=== PATIENT | female | born 1990 | race Two or more races ===

== ENCOUNTER 2016-03-24 18:17 | Emergency (ER) | payer MEDICAID ==
[2016-03-24] MEDS ORDERED: traMADol 50 MG TABLET PO STA (19:11)
[2016-03-24] MEDS ORDERED: MAG HYDROX/AL HYDROX/SIMETH 30 ML UDC PO STA (19:11)
[2016-03-24] MEDS ORDERED: ACETAMINOPHEN 500 MG TABLET PO STA (19:11)
[2016-03-24] MEDS ORDERED: ACETAMINOPHEN 500 MG TABLET PO ONE (19:20)
[2016-03-24] MEDS ORDERED: MAG HYDROX/AL HYDROX/SIMETH 30 ML UDC ONE (19:20)
[2016-03-24] MEDS ORDERED: traMADol 50 MG TABLET PO ONE (19:20)
== END 2016-03-24 21:18 | disposition home or self-care (01) ==
DX: O99.89 Other specified diseases and conditions complicating pregnancy, childbirth and the puerperium (principal); M54.5 Low back pain; Z3A.00 Weeks of gestation of pregnancy not specified
CPT/HCPCS: 36415; 76801; 76817; 81003; 81025; 84702; 99283; 99284; A9270

== ENCOUNTER 2016-04-05 22:17 | Emergency (ER) | payer MEDICAID ==
[2016-04-06] MEDS ORDERED: ACETAMINOPHEN 500 MG TABLET PO STA (00:59)
== END 2016-04-06 02:02 | disposition home or self-care (01) ==
DX: O99.89 Other specified diseases and conditions complicating pregnancy, childbirth and the puerperium (principal); M62.830 Muscle spasm of back; Z3A.01 Less than 8 weeks gestation of pregnancy

== ENCOUNTER 2016-06-15 15:49 | Emergency (ER) | payer MEDICAID ==
[2016-06-15] MEDS ORDERED: ACETAMINOPHEN 325 MG TABLET PO STA (16:58)
[2016-06-15] MEDS ORDERED: IBUPROFEN 600 MG TABLET PO STA (16:58)
[2016-06-15] MEDS ORDERED: IBUPROFEN 600 MG TABLET PO ONE (17:03)
[2016-06-15] MEDS ORDERED: ACETAMINOPHEN 325 MG TABLET PO ONE (17:03)
== END 2016-06-15 17:07 | disposition home or self-care (01) ==
DX: R10.32 Left lower quadrant pain (principal); O26.892 Other specified pregnancy related conditions, second trimester; Z3A.17 17 weeks gestation of pregnancy
CPT/HCPCS: 81003; 99283; A9270

== ENCOUNTER 2016-08-10 17:44 | Outpatient (CLI) | payer MEDICAID ==
[2016-08-10 18:53] LABS: BILIRUBIN,URINE NEGATIVE (NEGATIVE); UA CHARGE (STRIP ONLY) YES; UR CULTURE IF IND NOT INDICATED
--- NOTE | 2016-08-10 21:10 | Ultrasound Preliminary Report ---
Exam: US OB Limited IMPRESSION: 1. Single live intrauterine gestation with normal interval growth concordant with the established EDC of 11/25/2016 2. Normal RAJ and placenta. [facility] SITE ID: [id number]
[2016-08-10 21:30] VITALS: BP 118/62
--- NOTE | 2016-08-10 21:38 | Ultrasound Report ---
EXAM: THIRD TRIMESTER OBSTETRIC ULTRASOUND EXAM DATE: 08/10/2016 08:25 PM. CLINICAL HISTORY: Uterine cramping. LMP 02/19/2016. EGA 24 weeks 5 days. LÓPEZ 11/25/2016. COMPARISON: 04/06/2016. TECHNIQUE: Real-time scanning performed with static images. Both color-flow and Doppler technology we re utilized. FINDINGS: Fetus: Single live intrauterine gestation. Presentation: Breech. Heart Rate: 154 beats per minute. Placenta: Posterior fundal position. No placenta previa or abruption. Amniotic Fluid Index (RAJ): 18.9 cm (normal 8-25). MVP 5.5 cm. Biometry: Bi-parietal diameter (BPD): 6.5 cm = 21 weeks 1 days. Head circumference (HC): 22.1 cm = 24 weeks 1 days. Abdominal circumference (AC): 19.6 cm = 24 weeks 1 days. Femur length (FL): 4.3 cm = 23 weeks 4 days. Dates: Composite gestational age (this exam): 24 weeks 2 days (EDC 11/28/2016). Gestational age (based on established EDC): 24 weeks 5 days (EDC 11/25/2016). Estimated weight: 672 gm, 37 percentile. Anatomic Survey: A complete survey was not performed on this exam. Anatomic evaluation was limited secondary to the age, but demonstrates no definite abnormalities. Maternal Structures: Cervix: Long and closed measuring 3.6 cm, transabdominal. Uterus/adnexa: Unremarkable uterus. Ovaries not assessed. Kidneys: Not assessed. Free fluid: None. IMPRESSION: 1. Single live intrauterine gestation with normal interval growth concordant with the established EDC of 11/25/2016. 2. Normal RAJ and placenta. [facility] Referring Provider Line: [phone] SITE ID: [id number]
== END 2016-08-10 22:00 | disposition home or self-care (01) ==
LOC: WFO 17:44 → OB 17:47 → WFO 22:00
PROVIDERS: ATTEND Obstetrics & Gynecology
DX: O99.89 Other specified diseases and conditions complicating pregnancy, childbirth and the puerperium (principal); R10.9 Unspecified abdominal pain; Z3A.24 24 weeks gestation of pregnancy
CPT/HCPCS: 76815; 81001; 81003; 82731; 87086; 99213

== ENCOUNTER 2017-03-20 15:23 | Emergency (ER) | payer SELFPAY ==
[2017-03-20 15:39] VITALS: BP 128/73
[2017-03-20] MEDS ORDERED: LIDOCAINE VISCOUS 2% 15 ML UDC MM STA (15:49)
[2017-03-20] MEDS ORDERED: MAG HYDROX/AL HYDROX/SIMETH 30 ML UDC PO STA (15:49)
--- NOTE | 2017-03-20 15:53 | ED Physician Documentation ---
History of Present Illness - Stated complaint Stated Complaint: LT SHOULDER/RIB PX - Chief complaint Chief Complaint: General - History obtained from History obtained from: Patient - History of Present Illness Timing: Other (She developed Left-sided upper abdominal pain radiating to the left shoulder after eating a large spicy meal at lunchtime today. It is similar to when she had gastritis before and she has been treated for Helicobacter pylori in the past.) Review of Systems Constitutional: denies: Fever, Chills Cardiac: reports: Chest pain / pressure. denies: Palpitations Respiratory: denies: Dyspnea, Cough GI: reports: Abdominal Pain. denies: Nausea, Vomiting, Diarrhea, Bloody / black stool PD PAST MEDICAL HISTORY - Past Medical History GI: Cholelithiasis [employer]: None : None Musculoskeletal: None - Past Surgical History Past Surgical History: Yes General: Cholecystectomy - Present Medications Home Medications: Ambulatory Orders Medication Instructions Recorded Confirmed Ibuprofen 400 mg PO TID #20 tablet 06/15/16 Omeprazole [PriLOSEC] 20 mg PO DAILY #30 capsule 03/20/17 - Allergies Allergies/Adverse Reactions: Allergies Allergy/AdvReac Type Severity Reaction Status Date / Time No Known Drug Allergies Allergy Verified 04/05/16 22:27 - Social History Does the pt smoke?: No Smoking Status: Never smoker Does the pt drink ETOH?: No Does the pt have substance abuse?: No - Immunizations Immunizations are current?: Yes Immunizations: TDAP >10years/unknown - POLST Patient has POLST: No PD ED PE NORMAL - Vitals Vital signs reviewed: Yes - General General: Alert and oriented X 3, No acute distress - Cardiac Cardiac: RRR, No murmur - Respiratory Respiratory: No respiratory distress, Clear bilaterally - Abdomen Abdomen: Normal bowel sounds, Soft, Non tender - Neuro Neuro: Alert and oriented X 3, Normal speech - Psych Psych: Normal mood, Normal affect Results - Vitals Vitals: Vital Signs - 24 hr 03/20/17 15:38 Temperature 36.2 C L Heart Rate 74 Respiratory 20 Rate Blood Pressure 128/73 O2 Saturation 99 Oxygen O2 Source Room air - EKG (time done) 1543 Rate: Rate (enter#) (70) Rhythm: NSR (occ PAC) [place]: Normal Intervals: Normal [place] QRS: Normal Ischemia: Normal ST segments Computer interpretation: Agree with computer PD MEDICAL DECISION MAKING - ED course ED course: 27-year-old woman with left-sided upper abdominal pain radiating to the shoulder after a large spicy meal, she has had gastritis before and this seems like a recurrence and she did have good relief with a GI cocktail. Departure - Departure Disposition: 01 Home, Self Care Clinical Impression: Gastritis Qualifiers: Gastritis type: unspecified gastritis Chronicity: acute Gastritis bleeding: without bleeding Qualified Code(s): K29.00 - Acute gastritis without bleeding Condition: Good Record reviewed to determine appropriate education?: Yes Instructions: ED PUD Vs Gastritis Prescriptions: Omeprazole [PriLOSEC] 20 mg PO DAILY #30 capsule Comments: Call your doctor to arrange a follow-up appointment, make the next available appointment. In the interim, return anytime if worse or if new symptoms develop.
== END 2017-03-20 16:27 | disposition home or self-care (01) ==
LOC: ED 15:23
DX: K29.00 Acute gastritis without bleeding (principal)
CPT/HCPCS: 93005; 99281; 99283; A9270

== ENCOUNTER 2017-08-07 08:44 | Emergency (ER) | payer MEDICAID ==
[2017-08-07 09:34] LABS: BILIRUBIN,URINE NEGATIVE (NEGATIVE); GLUCOSE, URINE (UA) NEGATIVE (NEGATIVE); KETONES,URINE (UA) NEGATIVE (NEGATIVE); LEUKOCYTE ESTERASE, URINE NEGATIVE (NEGATIVE); NITRITE,URINE NEGATIVE (NEGATIVE); OCCULT BLOOD,URINE NEGATIVE (NEGATIVE); PROTEIN,URINE NEGATIVE (NEGATIVE); UROBILINOGEN,URINE 0.2 (NORMAL) E.U./dL (NORMAL)
[2017-08-07 09:44] LABS: CLARITY,URINE CLEAR (CLEAR)
[2017-08-07 10:46] LABS: HCG UR QUAL NEGATIVE
[2017-08-07] MEDS ORDERED: SODIUM CHLORIDE 0.9% 1,000 ML IV ONE (11:58)
[2017-08-07] MEDS ORDERED: KETOROLAC 60 MG/2 ML VIAL IVP STA (11:58)
--- NOTE | 2017-08-07 11:59 | ED Physician Documentation ---
History of Present Illness - Stated complaint Stated Complaint: R ABD PX - Chief complaint Chief Complaint: Abd Pain - Additonal information Additional information: hx from pt 27 f LMP June 29 s/p dede RLQ pain since yesterday no fever no NV some diarrhea no dysuria no vag dc Review of Systems Constitutional: denies: Fever, Chills Throat: denies: Sore throat Cardiac: denies: Chest pain / pressure Respiratory: denies: Dyspnea GI: reports: Abdominal Pain, Diarrhea. denies: Nausea, Vomiting : reports: LMP (June 29), Now EGA (need to check might be) Musculoskeletal: reports: Back pain (rad form RLQ) PD PAST MEDICAL HISTORY - Past Medical History GI: Cholelithiasis [employer]: None : None Musculoskeletal: None - Past Surgical History Past Surgical History: Yes General: Cholecystectomy - Present Medications Home Medications: Ambulatory Orders Medication Instructions Recorded Confirmed Ibuprofen 400 mg PO TID #20 tablet 06/15/16 Omeprazole [PriLOSEC] 20 mg PO DAILY #30 capsule 03/20/17 Dicyclomine [Bentyl] 10 mg PO Q8H PRN #20 capsule 08/07/17 Ibuprofen [Motrin] 400 mg PO Q6H PRN #30 tablet 08/07/17 - Allergies Allergies/Adverse Reactions: Allergies Allergy/AdvReac Type Severity Reaction Status Date / Time No Known Drug Allergies Allergy Verified 08/07/17 09:18 - Social History Does the pt smoke?: No Smoking Status: Never smoker Does the pt drink ETOH?: No Does the pt have substance abuse?: No - Immunizations Immunizations are current?: Yes Immunizations: TDAP >10years/unknown - POLST Patient has POLST: No Results - Vitals Vitals: Vital Signs - 24 hr 08/07/17 08/07/17 09:06 13:26 Temperature 36.5 C Heart Rate 77 65 Respiratory 18 16 Rate Blood Pressure 141/78 H 122/75 O2 Saturation 100 100 Oxygen O2 Source Room air - Labs Labs: Laboratory Tests 08/07/17 08/07/17 08/07/17 09:21 09:21 11:58 WBC RBC Hgb Hct MCV MCH MCHC RDW Plt Count MPV Neut # (Auto) Lymph # (Auto) [place] # (Auto) Eos # (Auto) Baso # (Auto) Absolute Nucleated RBC Nucleated RBC % Sodium Potassium Chloride Carbon Dioxide Anion Gap BUN Creatinine Estimated GFR (MDRD) Glucose Calcium Total Bilirubin AST ALT Alkaline Phosphatase Total Protein Albumin Globulin Albumin/Globulin Ratio Lipase Serum HCG, Qual NEGATIVE Urine Color YELLOW Urine Clarity CLEAR Urine pH 6.0 Ur Specific [place] 1.025 1.025 Urine Protein NEGATIVE Urine Glucose (UA) NEGATIVE Urine Ketones NEGATIVE Urine Occult Blood NEGATIVE Urine Nitrite NEGATIVE Urine Bilirubin NEGATIVE Urine Urobilinogen 0.2 (NORMAL) Ur Leukocyte Esterase NEGATIVE Ur Microscopic Review NOT INDICATED Urine Culture Comments NOT INDICATED Urine HCG, Qual NEGATIVE 08/07/17 08/07/17 11:58 11:58 WBC 8.2 RBC 4.76 Hgb 13.4 Hct 40.0 MCV 84.1 MCH 28.1 MCHC 33.4 RDW 13.3 Plt Count 229 MPV 9.5 Neut # (Auto) 5.6 Lymph # (Auto) 1.9 [place] # (Auto) 0.4 Eos # (Auto) 0.2 Baso # (Auto) 0.0 Absolute Nucleated RBC 0.00 Nucleated RBC % 0.0 Sodium 135 Potassium 3.5 Chloride 101 Carbon Dioxide 27 Anion Gap 7.0 BUN 14 Creatinine 0.6 Estimated GFR (MDRD) 121 Glucose 92 Calcium 9.3 Total Bilirubin 0.8 AST 57 H ALT 106 H Alkaline Phosphatase 102 Total Protein 9.2 H Albumin 4.6 Globulin 4.6 H Albumin/Globulin Ratio 1.0 Lipase 23 Serum HCG, Qual Urine Color Urine Clarity Urine pH Ur Specific [place] Urine Protein Urine Glucose (UA) Urine Ketones Urine Occult Blood Urine Nitrite Urine Bilirubin Urine Urobilinogen Ur Leukocyte Esterase Ur Microscopic Review Urine Culture Comments Urine HCG, Qual PD MEDICAL DECISION MAKING - ED course ED course: labs fine except mild LFT elev RLQ pain on exam janie horner concern for appy after confirming neg HCG (serum too) got CT which was neg for acute appy or any other acute process UA neg added on GC chlamydia to urine sample but pt denies vag bleed or dc and pain is higher than ovaries/uterus pt denies apap and EtOH use unclear why elev LFTs elev - will need further outpt wup explained all to pt who verbalized understanding SO seemed frustrated and angry with LOS but it was a very busy day in the ED, the pt needed a CT and her images did not get to telerad and had to be sent a second time - Sepsis Event Vital Signs: Vital Signs - 24 hr 08/07/17 08/07/17 09:06 13:26 Temperature 36.5 C Heart Rate 77 65 Respiratory 18 16 Rate Blood Pressure 141/78 H 122/75 O2 Saturation 100 100 Oxygen O2 Source Room air Departure - Departure Disposition: 01 Home, Self Care Clinical Impression: Right sided abdominal pain Instructions: ED Abdominal Pain Unkn Cause Follow-Up: Tracy Lazo MD [Primary Care Provider] - Prescriptions: Dicyclomine [Bentyl] 10 mg PO Q8H PRN #20 capsule PRN Reason: stomach cramps Ibuprofen [Motrin] 400 mg PO Q6H PRN #30 tablet PRN Reason: Pain Comments: Your test was negative - both urine and blood The urine test did not show any infection of blood to indicate a kidney stone. Your blood work was fine except for some slightly elevated liver function tests The CT showed normal looking liver kidneys pancreas appendix and ovaries You state you do not have vaginal discharge to suggest a pelvic infection Urine cultures are running Based on the reassuring CT scan is does not seem you need emergent surgery or antibiotics. The pain may be related to your liver. We have run the tests available in the ER But you need to follow up with your PMD for further tests on your liver Recommend you avoid any medications containing tylenol and alcohol until your PMD has run tests on your liver and the enzyme levels have come down Recommend trying motrin and bentyl for the pain Forms: Activity restrictions
[2017-08-07 12:19] LABS: BASOPHILS % (AUTO) 0.4 %; EOSINOPHILS # (AUTO) 0.2 10^3/uL (0.0-0.7); EOSINOPHILS % (AUTO) 2.3 %; HGB - HEMOGLOBIN 13.4 g/dL (12.0-16.0); LYMPHOCYTES # (AUTO) 1.9 10^3/uL (1.5-3.5); LYMPHOCYTES % (AUTO) 22.9 %; MEAN CORPUSCULAR HEMOGLOBIN 28.1 pg (27.0-31.0); MEAN CORPUSCULAR HGB CONC 33.4 g/dL (32.0-36.0); MEAN CORPUSCULAR VOLUME 84.1 fL (81.0-99.0); MEAN PLATELET VOLUME 9.5 fL (7.9-10.8); MONOCYTES # (AUTO) 0.4 10^3/uL (0.0-1.0); MONOCYTES % (AUTO) 5.4 %; NEUTROPHILS # (AUTO) 5.6 10^3/uL (1.5-6.6); PLT - PLATELET COUNT 229 10^3/uL (130-450); RED BLOOD COUNT 4.76 10^6/uL (4.20-5.40); RED CELL DISTRIBUTION WIDTH 13.3 % (12.0-15.0); WHITE BLOOD COUNT 8.2 x10^3/uL (4.8-10.8)
[2017-08-07 12:29] LABS: ALBUMIN 4.6 g/dL (3.2-5.5); BILIRUBIN,TOTAL 0.8 mg/dL (0.2-1.0); CALCIUM 9.3 mg/dL (8.5-10.3); CREATININE 0.6 mg/dL (0.4-1.0); TOTAL PROTEIN 9.2 g/dL (6.7-8.2)
[2017-08-07 12:39] LABS: HCG,QUALITATIVE BLOOD NEGATIVE
[2017-08-07 13:27] VITALS: BP 122/75
[2017-08-07] MEDS ORDERED: IOPAMIDOL-300 100 ML VIAL ONE (13:56)
[2017-08-07] MEDS ORDERED: IOPAMIDOL-300 100 ML VIAL IVP ONE (14:04)
--- NOTE | 2017-08-07 15:16 | CT Report ---
Procedure Date: 08/07/2017 Accession Number: [id number] / [id number] Procedure: CT - Abdomen/Pelvis W/ CPT Code: FULL RESULT: EXAM: CT ABDOMEN AND PELVIS EXAM DATE: 08/07/2017 02:08 PM. CLINICAL HISTORY: Rlq abd pain. COMPARISONS: 01/04/2016. TECHNIQUE: Routine helical CT imaging was performed through the abdomen and pelvis. IV contrast: 100 cc Isovue-300 IV. Enteric contrast: No. Reconstructions: Coronal and sagittal. In accordance with CT protocol optimization, one or more of the following dose reduction techniques were utilized for this exam: automated exposure control, adjustment of mA and/or KV based on patient size, or use of iterative reconstructive technique. FINDINGS: Lung Bases: Unremarkable. Liver: Normal. No masses. Gallbladder/Bile Ducts: The gallbladder is absent. Spleen: Normal. Pancreas: Normal. Adrenal Glands: Normal. Kidneys: Normal. No masses or hydronephrosis. Peritoneal Cavity/Bowel: Normal. No free fluid, free air or adenopathy. No masses or acute inflammatory process. No evidence of acute appendicitis. Pelvic Organs: There is trace free fluid in the posterior cul-de-sac of the pelvis. Uterus is anteverted. Ovaries are normal in size. Urinary bladder appears unremarkable. Vasculature: No aneurysms or other significant abnormality. Bones: No significant abnormality. Other: None. IMPRESSION: 1. Negative CT abdomen and pelvis. No localizing inflammatory process. No evidence of acute appendicitis. [facility]
== END 2017-08-07 15:53 | disposition home or self-care (01) ==
LOC: ED 08:44
DX: R10.31 Right lower quadrant pain (principal)
CPT/HCPCS: 36415; 74177; 80053; 81003; 81025; 83690; 84703; 85025; 87491; 87591; 96361; 96374; 99283; Q9967; 81001; 84702; 87086

== ENCOUNTER 2017-09-26 08:00 | Outpatient (CLI) | payer MEDICAID | END 2017-09-26 08:01 | disposition home or self-care (01) | LOC: LAB.R 08:00 | PROVIDERS: ATTEND Obstetrics & Gynecology | DX: Z11.3 Encounter for screening for infections with a predominantly sexual mode of transmission (principal) | CPT/HCPCS: 87491; 87591 ==

== ENCOUNTER 2017-10-02 08:25 | Outpatient (CLI) | payer MEDICAID ==
--- NOTE | 2017-10-02 13:03 | Ultrasound Report ---
Procedure Date: 10/02/2017 Accession Number: [id number] / [id number] Procedure: US - OB First Trimester CPT Code: FULL RESULT: EXAM: FIRST TRIMESTER OBSTETRIC ULTRASOUND (Less than 11 weeks) EXAM DATE: 10/02/2017 09:23 AM. CLINICAL HISTORY: ENCTR FOR SCREENING. LMP: 06/29/2017. COMPARISONS: OB FIRST TRIMESTER 04/06/2016 12:01 AM. TECHNIQUE: Transabdominal ultrasound examination with static image documentation. CLINICAL DATES: EGA 13 weeks 4 days with ÓLPEZ 04/05/2018 based on LMP. ASSESSMENT: Gestational Sac: Single intrauterine. Mean gestational sac diameter: 42.6 mm = 9 weeks 5 days. Embryo: CRL (crown-rump length) 3.8 mm = 10 weeks 3 days. Cardiac activity: 157 beats per minute. Yolk sac: 5.3 mm. Amniotic fluid: Not accurately assessed at this gestational age. Early placenta: Posterior. Other: There is a perigestational fluid collection measuring 1.6 x 1.2 x 3.2 cm. MATERNAL STRUCTURES: Uterus: Anteverted. Unremarkable. Cervix: Closed. Cervix measures 3.8 cm in length. Right Ovary/Adnexa: Unremarkable. The ovary measures 2.4 x 1.8 x 2.1 cm, volume 4.7 cc. Left Ovary/Adnexa: The left ovary is not visualized. No left adnexal mass apparent. Free Fluid: None. Other: None. IMPRESSION: 1. Single viable intrauterine at EGA 10 weeks 3 days with LÓPEZ 04/27/2018 based on crown-rump length, which is discordant with clinical dates from LMP. 2. Assigned dating is LÓPEZ 04/27/2018 based on current ultrasound. 3. There is a perigestational fluid collection measuring 1.6 x 1.2 x 3.2 cm. [facility]
== END 2017-10-02 08:26 | disposition home or self-care (01) ==
LOC: DI 08:25
PROVIDERS: ATTEND Obstetrics & Gynecology
DX: Z36.9 Encounter for antenatal screening, unspecified (principal)
CPT/HCPCS: 76801